=== PATIENT | male | born 1985 | race Caucasian/White ===

== ENCOUNTER → 2021-07-22 16:12 | Outpatient (CLI) | payer OTHER, SELFPAY ==
--- NOTE | 2021-07-22 16:14 | DI.US.S_ITS ---
PROCEDURE: US SCROTUM INDICATIONS: S/P VASECTOMY, PAIN TECHNIQUE: Real-time scanning was performed of the scrotum and testicles, with image documentation. Color and pulse Doppler interrogation was performed of both testicles. COMPARISON: None. FINDINGS: Right: Testicle is normal in size at 2.3 x 3.0 x 4.3 cm, and homogenous in echotexture. Epididymis is normal in overall size and morphology. No hydrocele or varicoceles. Overlying scrotal skin is normal in thickness. There is a small 5 x 6 x 7 mm epididymal cyst on the right. Left: Testicle is normal in size at 2.3 x 2.8 x 4.2 cm, and homogeneous in echotexture. Epididymis is normal in overall size and morphology. No hydrocele or varicoceles. Overlying scrotal skin is normal in thickness. There is a small 3 x 4 x 3 mm left epididymal cyst. Doppler: Color and pulse Doppler demonstrate normal and symmetric arterial flow in both testicles. IMPRESSION: Source of pain is not found. Small epididymal cyst found at each epididymis, below the threshold for producing symptomatology. Normal echotexture and morphology of each testis and no hydrocele or varicocele is found. Dictated by: Wali Bhandari M.D. on 07/22/2021 at 17:03 Approved by: Wali Bhandari M.D. on 07/22/2021 at 17:05
== END ==
PROVIDERS: Referring Provider Specialist; Visit Provider Specialist
DX: R10.32 Left lower quadrant pain (principal); N50.3 Cyst of epididymis; Z98.52 Vasectomy status
CPT/HCPCS: 76870

== ENCOUNTER → 2021-08-01 11:20 | Outpatient (CLI) | payer OTHER, SELFPAY ==
--- NOTE | 2021-08-01 11:21 | DI.RAD.S_ITS ---
PROCEDURE: XR SHOULDER LT MIN 2V INDICATIONS: painfulness TECHNIQUE: 3 views of the shoulder were acquired. COMPARISON: None. FINDINGS: Bones: No fractures or dislocations. No suspicious bony lesions. Visualized ribs appear intact. Soft tissues: No suspicious soft tissue calcifications. IMPRESSION: No acute osseous abnormality. Dictated by: Marco Antonio Lawrence M.D. on 08/01/2021 at 11:28 Approved by: Marco Antonio Lawrence M.D. on 08/01/2021 at 11:28
== END ==
PROVIDERS: Referring Provider Nurse Practitioner; Visit Provider Nurse Practitioner
DX: M25.512 Pain in left shoulder (principal)
CPT/HCPCS: 73030

== ENCOUNTER → 2021-09-01 14:38 | Outpatient (CLI) | payer OTHER, SELFPAY ==
[2021-09-01 14:59] LABS: Semen Sperm Prescence Post-Vas Absent (ABSENT)
== END ==
PROVIDERS: Referring Provider Specialist; Visit Provider Specialist
DX: Z30.09 Encounter for other general counseling and advice on contraception (principal)
CPT/HCPCS: 89321